=== PATIENT | male | born 1955 | race Caucasian/White ===

== ENCOUNTER 2020-06-01 07:15 | Inpatient (IN) | payer OTHER ==
[2020-06-01 07:49] VITALS: BMI 25.8
[2020-06-01] MEDS ORDERED: ALBUTEROL SO4 HFA INHALER IH ONE ×2 (07:53→07:59)
[2020-06-01] MEDS ORDERED: DEXAMETHASONE SOD PHOSPHATE 10 MG/1 ML VIAL IVPUSH ONE (07:53)
[2020-06-01] MEDS ORDERED: DEXAMETHASONE SOD PHOSPHATE 10 MG/1 ML VIAL ONE (08:00)
[2020-06-01] MEDS ORDERED: ASPIRIN 81 MG CHEWABLE TABLETS PO ONE (08:14)
[2020-06-01] MEDS ORDERED: ACETAMINOPHEN 325 MG TABLET (FP) PO ONE (08:15)
[2020-06-01] MEDS ORDERED: ACETAMINOPHEN 325 MG TABLET (FP) ONE (08:32)
[2020-06-01] MEDS ORDERED: ASPIRIN 81 MG CHEWABLE TABLETS ONE (08:32)
[2020-06-01 08:40] LABS: VENOUS BASE EXCESS 0.5 mmol/L (-2-2); VENOUS PCO2 52.5 mmHg (38-52); VENOUS PH 7.339 (7.310-7.410)
[2020-06-01 08:47] LABS: BASO % 0.5 % (0-2.0); EOS % 3.5 % (0-4.5); HEMATOCRIT 51.3 % (35.4-49); HEMOGLOBIN 17.7 GM/dL (11.7-16.9); LYMPH % 7.8 % (8-40); MCH 32.4 pg (25.7-33.7); MCHC 34.4 g/dl (32.0-35.9); MEAN PLT VOLUME 9.2 fl (7.5-11.1); MONO % 6.3 % (3.8-10.2); NEUT % 81.9 % (42.8-82.8); PLATELET COUNT 212 K/MM3 (134-434); RBC 5.46 M/mm3 (4.00-5.60); RDW 13.2 % (11.9-15.9); WHITE BLOOD COUNT 14.7 K/mm3 (4.0-10.0)
[2020-06-01 08:55] LABS: INR 1.03 (0.83-1.09); PROTHROMBIN TIME (PATIENT) 12.6 SEC (9.7-13.0)
[2020-06-01 08:57] LABS: ACTIVATED PTT 29.3 SECONDS (25.2-36.5)
[2020-06-01 09:01] LABS: CHLORIDE 105 mmol/L (98-107); SODIUM 138 mmol/L (136-145)
[2020-06-01 09:04] LABS: CALCIUM 8.9 mg/dL (8.5-10.1)
[2020-06-01 09:05] LABS: ALBUMIN 4.4 g/dl (3.4-5.0); ANION GAP 5 MMOL/L (8-16); BLOOD UREA NITROGEN 11.4 mg/dL (7-18); CO2 28 mmol/L (21-32); GLUCOSE,RANDOM 164 mg/dL (74-106)
[2020-06-01 09:08] LABS: CREATININE 0.9 mg/dL (0.55-1.3); SGOT/AST 35 U/L (15-37); SGPT/ALT 53 U/L (13-61)
[2020-06-01 09:09] LABS: BILIRUBIN,TOTAL 0.9 mg/dL (0.2-1); TOT PROT 7.9 g/dl (6.4-8.2)
[2020-06-01] MEDS ORDERED: LACTATED RINGERS SOLUTION 1000 ML INFUS.BAG IV STA (09:10)
[2020-06-01 09:11] LABS: ALK PHOS 103 U/L (45-117)
[2020-06-01] MEDS ORDERED: ALBUTEROL SO4 2.5/IPRATROPIUM 0.5 INH SOL 3 ML VIAL.NEB. NEB PRN (13:10)
[2020-06-01] MEDS ORDERED: LACTATED RINGERS SOLUTION 1,000 ML/1,000 ML INFUS.BAG IV SCH (13:15)
[2020-06-01] MEDS ORDERED: PANTOPRAZOLE 40 MG TABLET ONE (15:16)
[2020-06-01] MEDS ORDERED: ENOXAPARIN NA (PORCINE) 40 MG/0.4 ML DISP.SYRIN SQ ONE (15:17)
[2020-06-01] MEDS: PANTOPRAZOLE 40 MG TABLET PO SCH (15:20)
[2020-06-01] MEDS: ENOXAPARIN NA (PORCINE) 40 MG/0.4 ML DISP.SYRIN SQ SCH (15:20)
[2020-06-02 07:48] LABS: BASO % 0.2 % (0-2.0); HEMATOCRIT 46.1 % (35.4-49); HEMOGLOBIN 15.8 GM/dL (11.7-16.9); MCH 32.1 pg (25.7-33.7); MCHC 34.4 g/dl (32.0-35.9); MEAN CELL VOLUME 93.3 fl (80-96); MEAN PLT VOLUME 9.5 fl (7.5-11.1); NEUT % 85.8 % (42.8-82.8); PLATELET COUNT 185 K/MM3 (134-434); RBC 4.94 M/mm3 (4.00-5.60); WHITE BLOOD COUNT 16.2 K/mm3 (4.0-10.0)
[2020-06-02 08:10] LABS: ALBUMIN 3.6 g/dl (3.4-5.0); BLOOD UREA NITROGEN 18.2 mg/dL (7-18); CALCIUM 9.1 mg/dL (8.5-10.1)
[2020-06-02 08:14] LABS: CREATININE 0.9 mg/dL (0.55-1.3)
[2020-06-02 08:15] LABS: TOT PROT 6.8 g/dl (6.4-8.2)
[2020-06-02] MEDS ORDERED: sitaGLIPtin PHOSPHATE 50 MG TABLET ONE (09:45)
[2020-06-02] MEDS ORDERED: PANTOPRAZOLE 40 MG TABLET ONE (10:19)
[2020-06-02] MEDS: PANTOPRAZOLE 40 MG TABLET PO SCH (11:00)
[2020-06-02] MEDS: ENOXAPARIN NA (PORCINE) 40 MG/0.4 ML DISP.SYRIN SQ SCH (11:00)
[2020-06-02] MEDS ORDERED: ALBUTEROL SO4 2.5/IPRATROPIUM 0.5 INH SOL 3 ML VIAL.NEB. NEB ONE (12:39)
[2020-06-02] MEDS: LACTATED RINGERS SOLUTION 1,000 ML/1,000 ML INFUS.BAG IV SCH (12:59)
[2020-06-03] MEDS ORDERED: sitaGLIPtin PHOSPHATE 50 MG TABLET ONE (05:47)
[2020-06-03 07:40] LABS: BASO % 0.7 % (0-2.0); EOS % 2.4 % (0-4.5); HEMATOCRIT 44.5 % (35.4-49); HEMOGLOBIN 15.6 GM/dL (11.7-16.9); LYMPH % 20.1 % (8-40); MCH 32.6 pg (25.7-33.7); MCHC 35.1 g/dl (32.0-35.9); MEAN CELL VOLUME 93.1 fl (80-96); MEAN PLT VOLUME 8.9 fl (7.5-11.1); MONO % 7.8 % (3.8-10.2); PLATELET COUNT 217 K/MM3 (134-434); RBC 4.79 M/mm3 (4.00-5.60); RDW 13.5 % (11.9-15.9); WHITE BLOOD COUNT 11.1 K/mm3 (4.0-10.0)
[2020-06-03 08:01] LABS: CALCIUM 8.6 mg/dL (8.5-10.1)
[2020-06-03 08:02] LABS: BLOOD UREA NITROGEN 22.2 mg/dL (7-18)
[2020-06-03] MEDS ORDERED: PANTOPRAZOLE 40 MG TABLET ONE (13:17)
[2020-06-03] MEDS ORDERED: ENOXAPARIN NA (PORCINE) 40 MG/0.4 ML DISP.SYRIN SQ ONE (13:18)
[2020-06-03] MEDS: PANTOPRAZOLE 40 MG TABLET PO SCH (13:29)
[2020-06-03] MEDS: ENOXAPARIN NA (PORCINE) 40 MG/0.4 ML DISP.SYRIN SQ SCH (13:29)
[2020-06-03] MEDS: LACTATED RINGERS SOLUTION 1,000 ML/1,000 ML INFUS.BAG IV SCH (13:29)
[2020-06-03 16:23] VITALS: BP 142/74; PULSE 78; TEMP 98
== END 2020-06-03 19:00 | disposition home or self-care (01) | DRG 191 ==
LOC: JER 07:15 → JERBED 12:09
PROVIDERS: ADMIT Internal Medicine; ATTEND Internal Medicine
DX: J43.9 Emphysema, unspecified (principal); I45.2 Bifascicular block; R07.89 Other chest pain; I10 Essential (primary) hypertension; D72.829 Elevated white blood cell count, unspecified; R00.0 Tachycardia, unspecified; F17.210 Nicotine dependence, cigarettes, uncomplicated; M62.81 Muscle weakness (generalized); R06.82 Tachypnea, not elsewhere classified
CPT/HCPCS: 36415; 71046-TC-FY; 71275-TC; 80048; 80053; 82550; 82803; 82962; 83036; 83880; 84484; 85025; 85610; 85730; 93005; 93010; 93306-TC; 99285-25; C9803; J1100; U0003; U0005

== ENCOUNTER 2023-02-07 12:04 | Inpatient (IN) | payer OTHER ==
[2023-02-07] MEDS ORDERED: ACETAMINOPHEN 1000 MG/100 ML BAG IVPB ONE (13:06)
[2023-02-07] MEDS ORDERED: SODIUM CHLORIDE 0.9% 500 ML INFUS.BAG IV ONE (13:06)
[2023-02-07] MEDS ORDERED: MAG HYDROX/AL HYDROX/SIMETH 30 ML UNIT-DOSE CUP PO ONE (13:07)
[2023-02-07] MEDS ORDERED: FAMOTIDINE 20 MG/50 ML IVPB 20 MG/50 ML MG IVPB ONE ×2 (13:07→13:25)
[2023-02-07] MEDS ORDERED: ACETAMINOPHEN INJECTION 100 ML IVPB ONE (13:25)
[2023-02-07] MEDS ORDERED: MAG HYDROX/AL HYDROX/SIMETH 30 ML UNIT-DOSE CUP ONE (13:25)
[2023-02-07 14:00] LABS: BASO % 0.4 % (0-2.0); EOS % 0.4 % (0-4.5); HEMATOCRIT 52.4 % (35.4-49); HEMOGLOBIN 17.6 GM/dL (11.7-16.9); LYMPH % 8.3 % (8-40); MCH 31.5 pg (25.7-33.7); MCHC 33.6 g/dl (32.0-35.9); MEAN CELL VOLUME 93.9 fl (80-96); MEAN PLT VOLUME 8.7 fl (7.5-11.1); MONO % 6.2 % (3.8-10.2); NEUT % 84.7 % (42.8-82.8); PLATELET COUNT 249 10^3/uL (134-434); RBC 5.58 M/mm3 (4.00-5.60); RDW 13.7 % (11.9-15.9); WHITE BLOOD COUNT 14.7 K/mm3 (4.0-10.0)
[2023-02-07 14:16] LABS: POTASSIUM 4.1 mmol/L (3.5-5.1)
[2023-02-07 14:18] LABS: CALCIUM 9.5 mg/dL (8.5-10.1)
[2023-02-07 14:19] LABS: ALBUMIN 4.2 g/dl (3.4-5.0); BLOOD UREA NITROGEN 8.8 mg/dL (7-18)
[2023-02-07 14:22] LABS: CREATININE 0.9 mg/dL (0.55-1.3)
[2023-02-07 14:23] LABS: BILIRUBIN,TOTAL 0.8 mg/dL (0.2-1); TOT PROT 7.9 g/dl (6.4-8.2)
[2023-02-07] MEDS ORDERED: KETOROLAC TROMETHAMINE 30 MG/1 ML VIAL IM ONE (15:30)
[2023-02-07] MEDS ORDERED: KETOROLAC TROMETHAMINE 30 MG/1 ML VIAL ONE (15:32)
[2023-02-07 15:43] LABS: EPI CELLS 1 /uL (0-25.1); HYALINE CASTS 0 /uL (0-3.1); PH,URINE 7.5 (5.0-8.0); URINE APPEARANCE CLEAR; URINE BACTERIA 1 /uL (0-1359); URINE BILIRUBIN NEGATIVE (NEGATIVE); URINE COLOR YELLOW; URINE GLUCOSE (UA) TRACE (NEGATIVE); URINE KETONE NEGATIVE (NEGATIVE); URINE LEUK ESTERASE NEGATIVE (NEGATIVE); URINE NITRITE NEGATIVE (NEGATIVE); URINE PROTEIN NEGATIVE (NEGATIVE); URINE RBC 9 /uL (0-23.9); URINE UROBILINOGEN 0.2 mg/dL (0.2-1.0); URINE WBC 2 /uL (0-25.8)
[2023-02-07] MEDS ORDERED: CEFTRIAXONE 1,000 MG in DEXTROSE 5%-WATER - 50 ML IVPB ONE (17:38)
[2023-02-07] MEDS ORDERED: CEFTRIAXONE 1 GM/50 ML BAG ONE (17:42)
[2023-02-07] MEDS ORDERED: PANTOPRAZOLE SODIUM 40 MG VIAL ONE (19:17)
[2023-02-07] MEDS ORDERED: METOPROLOL TARTRATE 5 MG/5 ML VIAL IVPUSH PRN (19:22)
[2023-02-07] MEDS: LACTATED RINGERS SOLUTION 1,000 ML/1,000 ML INFUS.BAG IV SCH (19:25)
[2023-02-07] MEDS: INSULIN SLIDING SCALE (NOVOLOG) 1 VIAL SQ SCH (19:25)
[2023-02-07] MEDS: PANTOPRAZOLE SODIUM 40 MG VIAL IVPUSH SCH (19:25)
[2023-02-07 22:04] LABS: INR 1.08 (0.83-1.09); PROTHROMBIN TIME (PATIENT) 12.5 SEC (9.7-13.0)
[2023-02-07 22:06] LABS: ACTIVATED PTT 29.9 SECONDS (25.2-36.5)
[2023-02-08 08:31] LABS: BASO % 0.5 % (0-2.0); EOS % 1.2 % (0-4.5); HEMATOCRIT 49.2 % (35.4-49); HEMOGLOBIN 16.4 GM/dL (11.7-16.9); LYMPH % 8.4 % (8-40); MCHC 33.4 g/dl (32.0-35.9); MEAN CELL VOLUME 92.9 fl (80-96); MEAN PLT VOLUME 9.2 fl (7.5-11.1); MONO % 7.2 % (3.8-10.2); NEUT % 82.7 % (42.8-82.8); PLATELET COUNT 208 10^3/uL (134-434); RBC 5.29 M/mm3 (4.00-5.60); RDW 13.9 % (11.9-15.9); WHITE BLOOD COUNT 14.5 K/mm3 (4.0-10.0)
[2023-02-08 08:45] LABS: POTASSIUM 3.8 mmol/L (3.5-5.1)
[2023-02-08 08:54] LABS: ALBUMIN 3.6 g/dl (3.4-5.0); BLOOD UREA NITROGEN 8.6 mg/dL (7-18); CALCIUM 8.9 mg/dL (8.5-10.1)
[2023-02-08 08:57] LABS: CREATININE 0.8 mg/dL (0.55-1.3)
[2023-02-08 09:00] LABS: BILIRUBIN,TOTAL 0.9 mg/dL (0.2-1); TOT PROT 6.8 g/dl (6.4-8.2)
[2023-02-08] MEDS: INSULIN SLIDING SCALE (NOVOLOG) 1 VIAL SQ SCH ×3 (09:15→17:17)
[2023-02-08] MEDS: PANTOPRAZOLE SODIUM 40 MG VIAL IVPUSH SCH (09:40)
[2023-02-08] MEDS: LACTATED RINGERS SOLUTION 1,000 ML/1,000 ML INFUS.BAG IV SCH (19:59)
[2023-02-09 04:45] VITALS: BMI 25.1
[2023-02-09] MEDS: INSULIN SLIDING SCALE (NOVOLOG) 1 VIAL SQ SCH ×3 (06:05→17:01)
[2023-02-09] MEDS ORDERED: HEPARIN NA (PORCINE) 5,000 UNITS/ML 1ML VIAL ONE (08:11)
[2023-02-09] MEDS ORDERED: BUPIVACAINE HCL/PF 0.25% (2.5MG/ML) 10 ML VIAL ONE (08:11)
[2023-02-09] MEDS ORDERED: PROMETHAZINE HCL 25 MG/1 ML VIAL IVPB PRN (08:23)
[2023-02-09] MEDS ORDERED: oxyCODONE HCL 5 MG TABLET PO PRN ×4 (08:23→13:24)
[2023-02-09] MEDS ORDERED: ONDANSETRON 4 MG/2 ML VIAL IVPUSH PRN ×2 (08:23→13:24)
[2023-02-09] MEDS ORDERED: ACETAMINOPHEN 1000 MG/100 ML BAG IVPB PRN (08:24)
[2023-02-09] MEDS ORDERED: SEVOFLURANE 250 ML BTL ONE (08:26)
[2023-02-09] MEDS ORDERED: PROPOFOL 20 ML ONE (08:29)
[2023-02-09] MEDS ORDERED: LIDOCAINE HCL/PF 2% SDV 5ML VIAL ONE (08:29)
[2023-02-09] MEDS ORDERED: ROCURONIUM BROMIDE 50 MG/5 ML SYRINGE ONE ×2 (08:29→10:07)
[2023-02-09] MEDS ORDERED: DEXAMETHASONE SOD PHOSPHATE 4 MG/1 ML VIAL ONE ×2 (08:29→09:12)
[2023-02-09] MEDS ORDERED: MIDAZOLAM HCL 2 MG/2 ML SINGLE DOSE VIAL ONE (08:29)
[2023-02-09] MEDS ORDERED: INDOCYANINE GREEN 25 MG/10 ML VIAL IVPUSH ONE (08:40)
[2023-02-09] MEDS ORDERED: ALBUTEROL SO4 HFA INHALER IH ONE (09:12)
[2023-02-09] MEDS ORDERED: BUPIVACAINE HCL/PF 0.25% (2.5MG/ML) 10 ML VIAL IJ ONE (09:27)
[2023-02-09] MEDS ORDERED: SUGAMMADEX SODIUM 200 MG/2 ML VIAL ONE (09:30)
[2023-02-09] MEDS ORDERED: KETOROLAC TROMETHAMINE 30 MG/1 ML VIAL ONE (09:31)
[2023-02-09] MEDS: CEFTRIAXONE 2 GM in DEXTROSE 5%-WATER 100 ML IVPB SCH ×2 (13:00)
[2023-02-09] MEDS ORDERED: METOPROLOL TARTRATE 5 MG/5 ML VIAL IVPUSH PRN (13:24)
[2023-02-09] MEDS: LACTATED RINGERS SOLUTION 1,000 ML/1,000 ML INFUS.BAG IV SCH (14:20)
[2023-02-09] MEDS: PANTOPRAZOLE SODIUM 40 MG VIAL IVPUSH SCH (15:03)
[2023-02-09 19:41] LABS: BASO % 0.2 % (0-2.0); EOS % 0.1 % (0-4.5); HEMOGLOBIN 15.1 GM/dL (11.7-16.9); LYMPH % 2.5 % (8-40); MCH 31.5 pg (25.7-33.7); MCHC 33.5 g/dl (32.0-35.9); MEAN CELL VOLUME 93.8 fl (80-96); MEAN PLT VOLUME 9.2 fl (7.5-11.1); MONO % 2.8 % (3.8-10.2); NEUT % 94.4 % (42.8-82.8); PLATELET COUNT 213 10^3/uL (134-434); RDW 12.9 % (11.9-15.9)
[2023-02-09 20:03] LABS: POTASSIUM 4.2 mmol/L (3.5-5.1)
[2023-02-09 20:04] LABS: CALCIUM 8.1 mg/dL (8.5-10.1)
[2023-02-09 20:05] LABS: BLOOD UREA NITROGEN 19.3 mg/dL (7-18)
[2023-02-09 20:08] LABS: CREATININE 1.1 mg/dL (0.55-1.3)
[2023-02-10 00:02] LABS: N-TERMINAL BNP 126.6 pg/ml (5-125)
[2023-02-10] MEDS: ACETAMINOPHEN 1000 MG/100 ML BAG IVPB SCH ×4 (04:28→14:11)
[2023-02-10] MEDS: LACTATED RINGERS SOLUTION 1,000 ML/1,000 ML INFUS.BAG IV SCH ×2 (06:03→14:10)
[2023-02-10] MEDS: INSULIN SLIDING SCALE (NOVOLOG) 1 VIAL SQ SCH ×3 (06:08→17:03)
[2023-02-10] MEDS ORDERED: PANTOPRAZOLE SODIUM 40 MG VIAL IVPUSH SCH (10:00)
[2023-02-10] MEDS: CEFTRIAXONE 2 GM in DEXTROSE 5%-WATER 100 ML IVPB SCH (10:12)
[2023-02-10 10:38] LABS: BASO % 0.3 % (0-2.0); EOS % 0.1 % (0-4.5); HEMATOCRIT 45.1 % (35.4-49); HEMOGLOBIN 14.9 GM/dL (11.7-16.9); LYMPH % 8.7 % (8-40); MCH 30.7 pg (25.7-33.7); MCHC 32.9 g/dl (32.0-35.9); MEAN CELL VOLUME 93.2 fl (80-96); MEAN PLT VOLUME 9.3 fl (7.5-11.1); MONO % 7.3 % (3.8-10.2); NEUT % 83.6 % (42.8-82.8); PLATELET COUNT 212 10^3/uL (134-434); RBC 4.84 M/mm3 (4.00-5.60); RDW 13.4 % (11.9-15.9); WHITE BLOOD COUNT 17.3 K/mm3 (4.0-10.0)
[2023-02-10 10:47] LABS: ALBUMIN 2.9 g/dl (3.4-5.0); BLOOD UREA NITROGEN 17.5 mg/dL (7-18); CALCIUM 8.3 mg/dL (8.5-10.1)
[2023-02-10 10:50] LABS: CREATININE 0.9 mg/dL (0.55-1.3)
[2023-02-10 10:52] LABS: BILIRUBIN,TOTAL 0.8 mg/dL (0.2-1)
[2023-02-10] MEDS: HEPARIN NA (PORCINE) 5,000 UNITS/ML 1ML VIAL SQ SCH ×2 (14:11→21:56)
[2023-02-11] MEDS: HEPARIN NA (PORCINE) 5,000 UNITS/ML 1ML VIAL SQ SCH ×3 (06:43→21:52)
[2023-02-11] MEDS: INSULIN SLIDING SCALE (NOVOLOG) 1 VIAL SQ SCH ×3 (06:49→17:45)
[2023-02-11 08:32] LABS: BASO % 0.9 % (0-2.0); EOS % 1.5 % (0-4.5); HEMATOCRIT 47.6 % (35.4-49); HEMOGLOBIN 15.9 GM/dL (11.7-16.9); MCH 30.9 pg (25.7-33.7); MCHC 33.5 g/dl (32.0-35.9); MEAN CELL VOLUME 92.5 fl (80-96); MEAN PLT VOLUME 9.2 fl (7.5-11.1); MONO % 7.7 % (3.8-10.2); NEUT % 77.9 % (42.8-82.8); PLATELET COUNT 226 10^3/uL (134-434); RBC 5.14 M/mm3 (4.00-5.60); RDW 13.2 % (11.9-15.9); WHITE BLOOD COUNT 12.9 K/mm3 (4.0-10.0)
[2023-02-11 08:46] LABS: POTASSIUM 3.6 mmol/L (3.5-5.1)
[2023-02-11 08:55] LABS: CALCIUM 8.5 mg/dL (8.5-10.1)
[2023-02-11 08:56] LABS: BLOOD UREA NITROGEN 10.9 mg/dL (7-18)
[2023-02-11 08:59] LABS: CREATININE 0.9 mg/dL (0.55-1.3)
[2023-02-11] MEDS: PANTOPRAZOLE 40 MG TABLET PO SCH (11:17)
[2023-02-11] MEDS: CEFTRIAXONE 2 GM in DEXTROSE 5%-WATER 100 ML IVPB SCH (12:36)
[2023-02-11] MEDS: LACTATED RINGERS SOLUTION 1,000 ML/1,000 ML INFUS.BAG IV SCH (16:08)
[2023-02-11] MEDS ORDERED: LOSARTAN POTASSIUM 50 MG TABLET PO SCH (21:00)
[2023-02-12] MEDS: HEPARIN NA (PORCINE) 5,000 UNITS/ML 1ML VIAL SQ SCH ×3 (06:08→21:25)
[2023-02-12] MEDS: INSULIN SLIDING SCALE (NOVOLOG) 1 VIAL SQ SCH ×3 (06:09→16:56)
[2023-02-12] MEDS: LACTATED RINGERS SOLUTION 1,000 ML/1,000 ML INFUS.BAG IV SCH ×2 (07:01→17:47)
[2023-02-12 09:26] LABS: BASO % 0.6 % (0-2.0); EOS % 2.8 % (0-4.5); HEMATOCRIT 48.6 % (35.4-49); HEMOGLOBIN 16.3 GM/dL (11.7-16.9); LYMPH % 12.8 % (8-40); MCH 31.1 pg (25.7-33.7); MCHC 33.5 g/dl (32.0-35.9); MEAN CELL VOLUME 92.9 fl (80-96); MEAN PLT VOLUME 9.3 fl (7.5-11.1); MONO % 8.4 % (3.8-10.2); NEUT % 75.4 % (42.8-82.8); PLATELET COUNT 226 10^3/uL (134-434); RBC 5.23 M/mm3 (4.00-5.60); RDW 13.4 % (11.9-15.9); WHITE BLOOD COUNT 12.3 K/mm3 (4.0-10.0)
[2023-02-12] MEDS: PANTOPRAZOLE 40 MG TABLET PO SCH (10:32)
[2023-02-12] MEDS: NICOTINE 21 MG/24 HOURS TOPICAL PATCH TD SCH (10:32)
[2023-02-12] MEDS: CEFTRIAXONE 2 GM in DEXTROSE 5%-WATER 100 ML IVPB SCH (10:32)
[2023-02-12 11:37] LABS: POTASSIUM 3.7 mmol/L (3.5-5.1)
[2023-02-12 11:50] LABS: CALCIUM 8.7 mg/dL (8.5-10.1)
[2023-02-12 11:51] LABS: BLOOD UREA NITROGEN 14.4 mg/dL (7-18)
[2023-02-12 11:53] LABS: CREATININE 0.9 mg/dL (0.55-1.3)
[2023-02-13] MEDS: HEPARIN NA (PORCINE) 5,000 UNITS/ML 1ML VIAL SQ SCH ×2 (06:33→14:57)
[2023-02-13] MEDS: LACTATED RINGERS SOLUTION 1,000 ML/1,000 ML INFUS.BAG IV SCH (06:41)
[2023-02-13] MEDS ORDERED: INSULIN SLIDING SCALE (NOVOLOG) 1 VIAL SQ ONE (06:48)
[2023-02-13] MEDS ORDERED: INSULIN SLIDING SCALE (NOVOLOG) 1 VIAL SQ SCH (07:00)
[2023-02-13 09:07] LABS: BASO % 0.9 % (0-2.0); EOS % 2.9 % (0-4.5); HEMATOCRIT 48.1 % (35.4-49); HEMOGLOBIN 16.3 GM/dL (11.7-16.9); LYMPH % 11.5 % (8-40); MCH 31.3 pg (25.7-33.7); MCHC 33.9 g/dl (32.0-35.9); MEAN CELL VOLUME 92.4 fl (80-96); MEAN PLT VOLUME 9.1 fl (7.5-11.1); MONO % 7.7 % (3.8-10.2); PLATELET COUNT 245 10^3/uL (134-434); RBC 5.21 M/mm3 (4.00-5.60); RDW 13.4 % (11.9-15.9); WHITE BLOOD COUNT 11.5 K/mm3 (4.0-10.0)
[2023-02-13 09:14] LABS: POTASSIUM 3.5 mmol/L (3.5-5.1)
[2023-02-13 09:17] LABS: CALCIUM 8.7 mg/dL (8.5-10.1)
[2023-02-13 09:18] LABS: BLOOD UREA NITROGEN 12.6 mg/dL (7-18)
[2023-02-13 09:21] LABS: CREATININE 0.9 mg/dL (0.55-1.3)
[2023-02-13] MEDS: CEFTRIAXONE 2 GM in DEXTROSE 5%-WATER 100 ML IVPB SCH (10:01)
[2023-02-13] MEDS: NICOTINE 21 MG/24 HOURS TOPICAL PATCH TD SCH (10:03)
[2023-02-13] MEDS: PANTOPRAZOLE 40 MG TABLET PO SCH (10:03)
[2023-02-13] MEDS ORDERED: metroNIDAZOLE 250 MG TABLET PO SCH (14:00)
[2023-02-13 15:12] VITALS: BP 126/78; PULSE 77; RESP 16; TEMP 98
[2023-02-14] MEDS ORDERED: CEFUROXIME AXETIL 500 MG TABLET PO SCH (08:00)
== END 2023-02-13 16:22 | disposition home or self-care (01) | DRG 419 ==
LOC: JER 12:04 → JERBED 18:01 → J5S 02-08 20:03
PROVIDERS: ADMIT Internal Medicine; ATTEND Internal Medicine
PROC: 8E0W4CZ Robotic Assisted Procedure of Trunk Region, Percutaneous Endoscopic Approach (ICD-10-PCS; 2023-02-09)
PROC: 0FT44ZZ Resection of Gallbladder, Percutaneous Endoscopic Approach (ICD-10-PCS; principal; 2023-02-09 19:30)
DX: K80.00 Calculus of gallbladder with acute cholecystitis without obstruction (principal); I10 Essential (primary) hypertension; E11.9 Type 2 diabetes mellitus without complications; J44.9 Chronic obstructive pulmonary disease, unspecified; K59.00 Constipation, unspecified; K57.90 Diverticulosis of intestine, part unspecified, without perforation or abscess without bleeding; M62.81 Muscle weakness (generalized); N28.1 Cyst of kidney, acquired; K57.30 Diverticulosis of large intestine without perforation or abscess without bleeding; D72.829 Elevated white blood cell count, unspecified; I70.0 Atherosclerosis of aorta
CPT/HCPCS: 36415; 71046-TC-FY; 74177-TC; 80048; 80053; 80061; 81003; 82962; 83036; 83690; 83735; 83880; 84439; 84443; 84484; 85025; 85610; 85730; 86850; 86900; 86901; 87040; 87086; 88304-TC; 93005; 93010; 93306-TC; 94010; 94760; 94761; 97116-GP; 97161-GP; 99285-25; J1644; Q9967